=== PATIENT | female | born 1950 ===

== ENCOUNTER 2016-06-16 22:21 | Observation (INO) | payer MEDICAID ==
[2016-06-16] MEDS ORDERED: IOPAMIDOL 370 (76%) IV.SOLN 150 ML IV ONE (22:22)
[2016-06-16 23:13] LABS: ABSOLUTE NEUTROPHIL COUNT 4.7 K/mm3 (1.8-7.7); BASO % 0.2 % (0.2-1.0); EOS # 0.1 (0.0-0.5); EOS % 1.2 % (0.9-2.9); HEMATOCRIT 40.9 % (37.0-47.0); HEMOGLOBIN 14.1 gm/l (12.0-16.0); IMM NEUT% 0.2 % (0-1); LYMPH % 35.4 % (15-45); MEAN CELL VOLUME 84.5 fl (81.0-99.0); MEAN CORPUSCULAR HEMOGLOBIN 29.1 pg (27.0-31.0); MEAN CORPUSCULAR HGB CONC 34.5 g/dl (33.0-37.0); MEAN PLATELET VOLUME 11.7 fl (7.4-10.4); MONO # 0.6 (0.0-0.8); MONO % 6.8 % (4-12); NEUT % 56.2 % (43-75); PLATELET COUNT 263 K/mm3 (130-400); RED CELL DISTRIBUTION WIDTH 12.8 % (11.5-14.5)
[2016-06-16 23:32] LABS: ALB/GLOB RATIO 1.1 (>1.0); ALBUMIN 4.1 gm/dL (3.5-5.7); CALCIUM 10.5 mg/dL (8.6-10.3)
[2016-06-16] MEDS ORDERED: POTASSIUM CHLORIDE 20 MEQ TAB.PRT.SR ONE (23:50)
[2016-06-17] MEDS ORDERED: ASPIRIN CHEWTAB 81 MG TABLET ONE (01:46)
[2016-06-17] MEDS ORDERED: REGADENOSON 0.1 MG DOSE IV ONE (02:06)
[2016-06-17 02:42] VITALS: BMI 25.4
[2016-06-17] MEDS ORDERED: BISACODYL 10 MG SUP PR PRN (06:03)
[2016-06-17] MEDS ORDERED: BLISTEX LIPSTICK 1 EACH TP PRN (06:03)
[2016-06-17] MEDS ORDERED: BISACODYL 5 MG TABLET.EC PO PRN (06:03)
[2016-06-17] MEDS ORDERED: ACETAMINOPHEN 325 MG TABLET PO PRN (06:03)
[2016-06-17] MEDS ORDERED: MENTHOL/CETYLPYRD 1 EACH LOZENGE PO PRN (06:03)
[2016-06-17] MEDS ORDERED: MAGNESIUM HYDROXIDE 30 ML UDCUP PO PRN (06:03)
[2016-06-17] MEDS ORDERED: SODIUM CHLORIDE 0.9% 100 ML IV PRN (06:03)
[2016-06-17] MEDS ORDERED: SODIUM CHLOR 0.9% w 40mEq KCL 1,000 ML IV SCH ×2 (06:15→08:45)
[2016-06-17] MEDS ORDERED: SODIUM CHLORIDE 0.9% 1,000 ML IV SCH (06:15)
[2016-06-17] MEDS ORDERED: PUMP TUBING ONE (07:47)
--- NOTE | 2016-06-17 07:52 | CT ---
Exam Type: CTA CHEST FOR DISSECTION, CTA ABD/PELVIS Date and Time: 06/16/2016 11:49 PM Clinical information: Chest pain for one week. Comparison: None Procedure: Imaging device: [employer] Aquilion [address] scanner 1 mm axial images were obtained through the chest, abdomen and pelvis. Stacked reconstructed 3, 4 and 5 mm images were photographed in the axial coronal and sagittal planes. 3-D reconstructed images were also photographed off the console workstation. No oral contrast was utilized for this examination. 125 ml of Isovue-370 was injected intravenously. Exam: with intravenous contrast. FINDINGS: Chest: Thyroid Gland: There is a 9 mm low-attenuation nodule suggested within the posterior aspect of the left thyroid lobe. Mediastinum: There is a normal appearance of the mediastinal structures with no discrete mass or evidence of significant mediastinal adenopathy identified. Hilar structures: The hilar structures are normal with no mass or enlarged adenopathy observed. Heart: The heart size is appropriate. Aorta: The thoracic aorta appears to be of normal caliber. There is no evidence of observed to suggest an aortic dissection. Mild atherosclerotic disease is observed. Pericardium: No discrete pericardial abnormalities or evidence of significant fluid is observed. Esophagus: The visualized portions of the esophagus are unremarkable. Central airways: Unremarkable. Lung parenchyma: Dependent atelectatic changes are suggested. There is no effusion or pneumothorax visualized. Abdomen/Pelvis: Liver: the liver is homogeneous with no discrete abnormality visualized. No definite findings of biliary dilatation are observed. Spleen: The spleen is somewhat atrophic. Gallbladder: Calcified gallstones are suggested within the dependent portion of the gallbladder. No adjacent inflammatory stranding is observed. Pancreas: Normal without enlargement or evidence of adjacent inflammatory changes. Adrenal glands: Normal without enlargement or evidence of adjacent inflammatory changes. Abdominal aorta: There is atherosclerotic plaque seen within the aorta. No focal aneurysm is visualized. Kidneys: The kidneys appear to be symmetric in size with no perinephric inflammatory changes are identified. No current findings of hydronephrosis are seen. Bowel structures: The visualized bowel is of normal caliber without evidence of dilatation or obstruction. No free fluid or mesenteric inflammatory changes are identified. Appendix: The appendix is well-visualized and appears to be of normal caliber. No periappendiceal inflammatory changes or CT findings of appendicitis are currently observed. Bladder: Moderately distended. Hernia: No abdominal wall or inguinal hernia is visualized on this examination. Adenopathy: A few mildly prominent right lower quadrant mesenteric lymph nodes are observed. Osseous structures: There are thoracic and lumbar degenerative changes observed, particularly at L5-S1. There is grade 1 anterolisthesis of L5 on S1 noted as well. Pelvic structures: No discrete pelvic abnormalities are visualized in this examination. IMPRESSION: 1. No evidence of an aortic dissection visualized. 2. Dependent bilateral atelectatic changes. 3. Cholelithiasis. 4. Mildly prominent right lower quadrant mesenteric adenopathy. 5. A 9 mm low-attenuation nodule within the posterior aspect of the left thyroid lobe. 6. Thoracic and lumbar degenerative changes with grade 1 anterolisthesis of L5 on S1. The findings were called to the emergency room at 0109 hours, 06/17/2016., by [facility].
[2016-06-17] MEDS: INSULIN ASPART (DOSE) 100 UNITS/1 ML SUB-Q SCH ×4 (07:59→16:38)
[2016-06-17] MEDS: GLIPIZIDE 10 MG TABLET PO SCH ×2 (08:00→17:20)
--- NOTE | 2016-06-17 08:16 | HP ---
Leela Matta [id number] DATE OF ADMISSION: 06/17/2016 CHIEF COMPLAINT: Chest pain and pressure. HISTORY OF PRESENT ILLNESS: The patient is a 65-year-old female who had been visiting family in [place] for the last several months who returned on the 28 of May. She had been receiving some injections of dexamethasone for her knee pains. She on return had been off her medicine for two weeks, but had resumed it 06/16. Her daughter reports the patient has mentioned about one week of some chest pain and discomfort, pressure sensation. There are no particular provoking symptoms or relieving symptoms. She has not had dyspnea. She has not had a significant change in activity tolerance, but has not walked any significant distance recently. She has had some nausea, but presently is hungry. She has not had fevers. She has had some fatigue, some neck pain, and some headache also noted. Patient had had blood pressure checked at home and it was high and has also had high sugars as well. She has had some loose stools recently with about 6 bowel movements in the last day. PAST MEDICAL HISTORY: Remarkable for diabetes mellitus type 2 for the last 4 or 5 years. She does not have any cardiac history. She has had a history of hypertension. She has had knee pain and has been getting some shots of a dexamethasone containing substance that she got in [place]. PAST SURGICAL HISTORY: She had a procedure to open a tear duct which was not successful. She has not had any other operations. ALLERGIES: No known drug allergies. MEDICATIONS: 1. Amlodipine 10 mg daily. 2. Aspirin 81 mg daily. 3. Calcium carbonate. 4. Vitamin D3 two tablets by mouth twice daily. 5. Glipizide 10 mg by mouth twice daily. 6. Losartan HCTZ 100/25 one by mouth daily. 7. Metformin 1000 mg by mouth twice daily. 8. Metoprolol succinate 50 mg by mouth daily. SOCIAL HISTORY: Patient lives with her daughter and her daughters as well as her two sons. Her granddaughter lives there was well. Patient is , but her spouse is in a home due to severe diabetes with amputations in [place]. They have one dog. No smoking. No alcohol. No current jew affiliation. Hobbies: She enjoys cooking and cleaning. She had been visiting family in [facility]. FAMILY HISTORY: Father is in his 80's with leg and knee pain, diabetes, and hypertension. Mom no data. REVIEW OF SYSTEMS: Eyes: She has had some history of glaucoma, is not able to see so well, but this has not changed recently. Ears have been okay. Nose is okay. Mouth is okay. Teeth, she has dentures. Neck: She notes is hurting some toward the back, but has not had any significant changes. Breathing, no difficulties with respiration. Activity tolerance appears to be unchanged, but she has not had a significant walk such as to her 's longterm in the last week. No vomiting. She states she is actually very hungry. Some loose stools with diarrhea yesterday six times. Legs have had a little bit of swelling when she was in [place], but not so much now. Weight she thinks is down a little bit. She has never had a stroke. She has had no skin complaints. PHYSICAL EXAMINATION: GENERAL: Nontoxic female. VITAL SIGNS: Blood pressure 175/88, temperature 97.5, pulse 59, saturation 98% on room air, respirations 18. HEENT: Head is normocephalic, atraumatic. Eyes grossly unremarkable. Ears grossly normal. Tympanic membranes normal. Nose unremarkable, no discharge. Oropharynx edentulous. Mucous membranes are moist and unremarkable. NECK: No significant masses, adenopathy, or jugular venous distention evident. LUNGS: Generally clear to auscultation bilaterally with good air movement. HEART: Regular rate and rhythm without murmur noted. ABDOMEN: Soft, nontender, nondistended. Negative Sequeira's sign. Bowel sounds are present. No bruits. No masses noted. GENTOURINARY: Deferred. BREAST: Deferred. EXTREMITIES: Legs unremarkable without clubbing, cyanosis, or edema. No ulceration. No cellulitis. Pulses are good throughout. NEURO: Patient answers appropriately and no deficits are noted. LABORATORY: White count 8.4, hemoglobin 14.1, platelets 203. Sodium 132, potassium 2.9, chloride 87, CO2 36, BUN 34, creatinine 0.8, glucose 402, calcium is 10.5, bilirubin 0.3, AST 11, ALT 15, alk phos 124. Troponin 0.02. Albumin 4.1, globulin 3.7. DIAGNOSTICS: CT of the chest and abdomen done for dissection and shows no evidence for pulmonary embolus, small left thyroid nodule, mild atelectasis of the lungs, no abdominal aortic aneurysm, no dissection, some cholelithiasis is noted grade I to II, and anterolithesis L5 on S1, degenerative changes, no bowel changes, normal appendix. EKG normal sinus rhythm 66 beats per minute, OR 136, QRS 97, QTC 435, axis 17, nonspecific ST changes read by computer, but not appearing remarkable. ASSESSMENT AND PLAN: 1. Chest pressure times one week not particularly exertional. Troponin is normal. EKG not remarkable. We will recheck troponin and anticipate Lexiscan myoview later today. Question of missing her beta kae, but has been reported to have been restarted yesterday. 2. Diabetes mellitus type 2 with current poor control. Patient has been off her metformin and glipizide recently, but has also received injections of dexamethasone which likely has impacted it. Anticipate use of fluids in case she has some dehydration suggested by the elevated BUN and creatinine ratio. We will be checking blood sugars every two hours and anticipate starting a sliding scale and resuming her glipizide and will later resume her metformin once the creatinine has been rechecked. 3. Hypertension. Resumed medication particularly the beta kae and will monitor. 4. Hypokalemia. Patient with a potassium of 2.9. This may be related to her hydrochlorothiazide and Hyzaar and also the dexamethasone possibly. We will plan potassium replacement with IV and oral. Could consider whether this might be related to her marked hypertension to suggest hyperaldosteronism, but at this time we will monitor. 5. Osteoarthritis of the knees. Anticipate physical therapy and occupational therapy evaluation and could consider trial of a nonsteriodal. 6. Reported diarrhea. We will check stools for white cells, red cells, and culture. 7. Venous thrombosis prophylaxis. Patient ambulatory and felt to be low risk observation patient. 8. Code status. Anticipate full code. JOB: [id number] CC: [facility]
[2016-06-17] MEDS ORDERED: METOPROLOL SUCCINATE (XL) 50 MG TAB.PRT.SR PO SCH (09:00)
[2016-06-17] MEDS ORDERED: DOCUSATE SODIUM 100 MG CAPSULE PO SCH (09:00)
[2016-06-17] MEDS ORDERED: HYDROCHLOROTHIAZIDE 25 MG TABLET PO SCH (09:00)
[2016-06-17] MEDS ORDERED: ASPIRIN (ENTERIC COATED) 81 MG TABLET.EC PO SCH (09:00)
[2016-06-17] MEDS ORDERED: POTASSIUM CHLORIDE 10 MEQ TAB.SR PO SCH (09:00)
[2016-06-17] MEDS ORDERED: LOSARTAN POTASSIUM 50 MG TABLET PO SCH (09:00)
[2016-06-17] MEDS ORDERED: CALCIUM CARBONATE 600 MG/VITAMIN D3 400 UNIT/TABLET PO SCH (09:00)
[2016-06-17] MEDS ORDERED: AMLODIPINE BESYLATE 5 MG TABLET PO SCH (09:00)
[2016-06-17] MEDS ORDERED: FLU VACC 2016-17 (36MO-64Y)/PF 60 MCG/0.5 ML SYRINGE IM V ONE (10:00)
[2016-06-17] MEDS ORDERED: PNEUMOCOCCAL 23-VAL P-SAC VAC 0.5 ML VIAL IM V ONE (10:00)
[2016-06-17 11:01] LABS: STOOL FOR OCCULT BLOOD NEGATIVE (NEGATIVE)
[2016-06-17 11:02] LABS: URINE APPEARANCE CLEAR; URINE BILIRUBIN NEGATIVE (NEGATIVE); URINE BLOOD NEGATIVE (NEGATIVE); URINE COLOR YELLOW; URINE GLUCOSE (UA) 3+ (NEGATIVE); URINE LEUKOCYTE ESTERASE NEGATIVE (NEGATIVE); URINE NITRITE NEGATIVE (NEGATIVE); URINE PROTEIN 2+ (NEGATIVE); URINE UROBILINOGEN NORMAL (0-1 mg/dl)
[2016-06-17 11:15] LABS: URINE BACTERIA RARE; URINE RBC 0-1 /hpf; URINE WBC 0-1 /hpf
--- NOTE | 2016-06-17 13:30 | NUC MED ---
Indication: Chest pain, hypertension. Comparison: None Radiopharmaceutical: 12.5 millicuries technetium 99m sestamibi at rest, 37.0 millicuries technetium 99m sestamibi at stress Findings: Multiple scintigraphic SPECT images were obtained after IV administration of radiopharmaceutical to the patient. Lexiscan protocol was used under the supervision of Dr. Zee. Patient achieved 52 percent of the maximal age predicted heart rate. Patient had flushing, stomach pain and faintness symptoms during the exam. EKG demonstrated no changes. Study was terminated at the end of protocol. Scintigraphic images demonstrate no evidence of ischemia or infarction. Radio tracer distribution is normal. Wall motion is normal. Ejection fraction is 73%. Impression: Normal examination with 73% ejection fraction. Findings were called to Dr. Zee at approximately 1327 hours on 06/17/2016.
[2016-06-17] MEDS: INSULIN ASPART (DOSE) 100 UNITS/1 ML SUB-Q PRN ×2 (14:03→17:42)
[2016-06-17 15:49] LABS: A1C-GLYCOHEMOGLOBIN 1.5 g/dl; HEMOGLOBIN-GLYCO 14.1 g/dl
[2016-06-17 15:52] VITALS: BP 134/76
== END 2016-06-17 18:15 | disposition home or self-care (01) ==
LOC: ED 22:21 → MS 06-17 02:05
PROVIDERS: ADMIT Family Medicine; ATTEND Family Medicine
DX: R07.9 Chest pain, unspecified (principal); K80.20 Calculus of gallbladder without cholecystitis without obstruction; M51.35 Other intervertebral disc degeneration, thoracolumbar region; E11.9 Type 2 diabetes mellitus without complications; Z79.4 Long term (current) use of insulin; I10 Essential (primary) hypertension; E87.5 Hyperkalemia; Z23 Encounter for immunization
CPT/HCPCS: 90732; 90682; 83880; 85025; 87045; 87046 ×2; 87427; 80053; 87205; 83036; 83735; 82270; 84484 ×2; 81001; 78452; 74174; 71275; 99285 ×2; 82962; 93017; 93005; A9270 ×11; J7030; J2785; J1815 ×4; Q9967; A9500